=== PATIENT | female | born 1960 | race Caucasian/White ===

== ENCOUNTER 2017-03-10 14:21 | Emergency (ER) | payer OTHER | END 2017-03-10 15:48 | disposition home or self-care (01) | LOC: FER 14:21 | DX: S46.919A Strain of unspecified muscle, fascia and tendon at shoulder and upper arm level, unspecified arm, initial encounter (principal); E11.9 Type 2 diabetes mellitus without complications; I10 Essential (primary) hypertension; E78.5 Hyperlipidemia, unspecified; F17.210 Nicotine dependence, cigarettes, uncomplicated; Z88.0 Allergy status to penicillin; Z79.82 Long term (current) use of aspirin; Z79.84 Long term (current) use of oral hypoglycemic drugs; Z79.899 Other long term (current) drug therapy; W19.XXXA Unspecified fall, initial encounter | CPT/HCPCS: 99283 ==